=== PATIENT | male | born 1940 | race Caucasian/White ===

== ENCOUNTER 2020-10-01 10:08 | Outpatient (REF) | payer MEDICARE, BC, OTHER, SELFPAY | END 2020-10-01 10:09 | disposition home or self-care (01) | LOC: HO.HAP 10:08 | DX: Z46.1 Encounter for fitting and adjustment of hearing aid (principal); H90.3 Sensorineural hearing loss, bilateral | CPT/HCPCS: V5014; V5299 ==

== ENCOUNTER 2021-04-18 11:31 | Outpatient (REF) | payer MEDICARE, BC, SELFPAY ==
--- NOTE | 2021-04-21 10:17 | MHC.AU.AHA ---
Adult Audiological Evaluation Date of Visit: 04/18/21 Typists Supervisor Used: Not Applicable Reason for Appointment: Audiologic re-evaluation due to question of change in hearing ability. Mr. Linda reports he is not hearing as well from the right ear. It is noted today he has been wearing his very old right Widex hearing aid since he thought there was a problem with the current Phonak Bolero aid. 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 Left Ear - Mild dropping to profound sensorineural hearing loss with 92% speech discrimination at 80 dB HL. Medical History: Medical History: Cancer (Kidney cancer being treated with immunotherapy), Diabetes, Heart Problems, High Blood Pressure, Thyroid Disease Medication List: Aspirin, Atenolol, Betamethasone Dipropionate, Budesonide, Chephalexin, Furosemide (potentially ototoxic), Gabapentin, Insulin Aspart, Ketoconazole, Lantus Solostar, Levothyroxine, Loperamide, Nystatin-Triamcinolone, Rosuvastatin, Iron Hearing Instrument History- Right Ear: Court Orderly: Phonak Model: Bolero B 50-P BTE Serial Number: [id number] Battery Size: 13 Repair Warranty: 05/01/2021 Dispensed By: [facility] Date of Fittin02/25/2018 Hearing Instrument History- Left Ear: Court Orderly: Phonak Model: Bolero B 50-P Serial Number: [id number] Battery Size: 13 Warranty: 09/24/2021 Dispensed By: [facility] Date of Fittin04/08/2017 Otoscopy: Right Ear: Unremarkable Left Ear: Unremarkable Tympanometry: Tympanometry performed due to: History of mixed hearing loss Right Ear: Negative Middle Ear Pressure (Type C) Left Ear: Hypercompliant Middle Ear System (Type Ad) Hearing Evaluation: Transducer(s) Used: Insert Earphones Bone Conduction Method: Conventional Audiometry Stimuli Used: Pure Tones Right Ear: Description of Hearing: 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 Left Ear: Description of Hearing: Mild dropping to profound sensorineural hearing loss. Speech Recognition Threshold (SRT): Method Used: Monitored Live Voice Stimuli Used: Spondee Words Right Ear: 70 dB HL Left Ear: 40 dB HL Word Discrimination: Method: Recorded Lists Word Lists Used: NU-6 Right Ear: 68% at 95 dB HL Left Ear: 92% at 80 dB HL Comparison: Compared to the most recent evaluation: Hearing is stable. Word discrimination scores have decreased in the right ear. Compared to most recent evaluation: The reason the right ear speech understanding has decreased may be related to the fact Mr. Linda has been wearing his old Widex BTE aid. The sound quality of the old aid is not as sharp and clear as the current Phonak BTE. Following maintenance today, the right Phonak aid is amplifying well and he will use both Phonak aids. With proper stimulation now, the right ear speech discrimination will likely improve with time. Recommendations: Mr. Linda is eligible for a new left hearing aid through his insurance. Trial period with new left Veronika Evolve AI 1600 BTE with earmold is recommended as Phonak newest hearing aids do not have a similar model to his current aids. Medical clearance from a physician is required before fitting. Hearing Aid Fitting will be scheduled when all materials arrive. Hearing aid maintenance performed today. Audiological re-evaluation in one year. Will send a reminder card. Diagnosis: Primary Diagnosis: H90.3 Bilateral Sensorineural Hearing Loss Services Performed: Comprehensive Audiological Evaluation (CPT 18944) Tympanometry (CPT 12764) Signature: Provider: Nikita Torres, EILEEN-A
== END 2021-04-18 11:32 | disposition home or self-care (01) ==
LOC: HO.SH 11:31
PROVIDERS: PCP Internal Medicine; Visit Provider Internal Medicine
DX: H90.3 Sensorineural hearing loss, bilateral (principal)
CPT/HCPCS: 92557; 92567

== ENCOUNTER 2021-04-18 11:38 | Outpatient (REF) | payer SELFPAY ==
--- NOTE | 2021-04-21 07:41 | MHC.AU.MED ---
Medical Clearance for Hearing Instrumentation Date: 04/18/21 Patient Name: Nadir Linda Date of : 1940 Primary Care Provider: Referring Provider: Manjula Wilson MD We have seen your patient on 04/18/21 and have determined that they are a candidate for amplification (See accompanying report). Specifically, they would benefit from: Hearing aid use in the right ear There is a statute that addresses Medical Evaluation Requirements prior to fitting a patient with a hearing aid. According to [place] statute 265 CMR:6.03(1), (a) General. Except as provided in 265 CMR 6.03(1)(b), a meat stocker shall not sell a hearing aid unless the prospective user has presented to the meat stocker a written statement signed by a licensed physician that states that the patient's hearing loss has been medically evaluated and the patient may be considered a candidate for a hearing aid. The medical evaluation must have taken place within the preceding six months. Please note: Due to the [place] Statute referenced above, we cannot accept a signature other than that of a licensed physician. DIAMOND CUTTER and PA signatures cannot be accepted. I am in agreement with the above recommendation. There is no medical contraindication for hearing instrumentation. Physician Signature Date Physician Name (Printed)
--- NOTE | 2021-04-21 08:04 | MHC.AU.HAS ---
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 Left Ear - Mild dropping to profound sensorineural hearing loss. Current personal amplification information, if applicable: Left - 2017 Phonak Bolero B 50-P and Right 2018 Phonak Bolero B 50-P Summary: Mr. Linda is eligible for a new left hearing aid through insurance. Would like to stay with a similar battery style hearing aid. [employer] now longer makes the Bolero or Lauren 13 battery models. Will trial a Veronika hearing aid. He will be eligible for a right aid we can match 02/25/2022 Hearing Aid Prescription: Based on the individual?s shared listening needs, communication environments, dexterity, desire for connectivity, and personal preferences, the following prescription for amplification has been made: Left ear: Bi Consultant: [employer] Model: Evolve AI 1600 BTE Battery Size: 13 Color: 01 Champagne Tubin T double bend Type of Mold: Microsonic #3 Semi Skeleton Plan of Care: Patient wishes to purchase hearing aids as prescribed Action Taken/Action Needed: Earmold Impressions Taken Medical Clearance to be requested from PCP/ENT Hearing Instrument Fitting to be scheduled when materials arrive Primary Diagnosis: H90.3 Bilateral Sensorineural Hearing Loss Signature: Provider: Nikita Torres, [facility]
--- NOTE | 2021-04-21 08:11 | MHC.AU.MED ---
Medical Clearance for Hearing Instrumentation Date: 04/21/21 Patient Name: Nadir Linda Date of : 1940 Primary Care Provider: Referring Provider: Manjula Wilson MD We have seen your patient on 04/21/21 and have determined that they are a candidate for amplification (See accompanying report). Specifically, they would benefit from: Hearing aid use in the left ear There is a statute that addresses Medical Evaluation Requirements prior to fitting a patient with a hearing aid. According to [place] statute 265 CMR:6.03(1), (a) General. Except as provided in 265 CMR 6.03(1)(b), a hearing instrument specialist shall not sell a hearing aid unless the prospective user has presented to the hearing instrument specialist a written statement signed by a licensed physician that states that the patient's hearing loss has been medically evaluated and the patient may be considered a candidate for a hearing aid. The medical evaluation must have taken place within the preceding six months. Please note: Due to the [place] Statute referenced above, we cannot accept a signature other than that of a licensed physician. MANUFACTURING QUALITY TECHNICIAN and PA signatures cannot be accepted. I am in agreement with the above recommendation. There is no medical contraindication for hearing instrumentation. Physician Signature Date Physician Name (Printed)
== END 2021-04-18 11:39 | disposition home or self-care (01) ==
LOC: HO.HAP 11:38
PROVIDERS: Visit Provider Internal Medicine
DX: Z13.89 Encounter for screening for other disorder (principal)

== ENCOUNTER 2021-06-03 10:07 | Outpatient (REF) | payer MEDICARE, SELFPAY ==
--- NOTE | 2021-06-03 14:10 | MHC.AU.HFL ---
Hearing Instrument Fitting- Adult- Left Ear Date of Visit: 06/03/21 Hearing Instrument(s) Dispensed: Left Ear: Apprentice Painter Hand: [employer] Model: Evolv AI 1600 BTE 13 Serial Number: [id number] Repair Warranty: 08/05/2024 Loss and Damage Warranty: 08/05/2024 Battery Size: 13 Color: 01 Champagne Tubin T double bend Type of Mold: Microsonic #3 Semi Skeleton Type of Wax Guard: Summary of Fitting: Ran feedback test and performed Real Ear making adjustments to better meet target. Activated Frequency Lowering feature and volume control. All other features on default. Fit binaural new earmolds. The right earmold was ground down with patient reporting improved fit. Reprogrammed repaired Right Phonak Bolero B aid to last setting and updated to last audiogram. New left aid sounded louder to patient so increased the right Bolero aid as much as possible with patient reporting improved sound quality. Right Bolero B aid reaching maximum gain with changes made today. Patient wants to send out Left Phonak Bolero B aid which is under warranty until 09/2021. Completed all insurance paperwork with patient and sending to patient's insurance for him. Patient paid $800.00 today and will set up a payment plan for the remainder when he receives the bill. Recommendations:Hearing instrument care and maintenance were discussed and practiced. See handouts for care/use instructions and battery information. Patient does not feel follow-up is necessary at this time. Recommendations: When Left Phonak Bolero B repair is received, program to last settings. PATIENT NEEDS AID MAILED TO HIM AND BILL PATIENT ANY SHIPPING COSTS. Diagnosis Code(s): Primary Diagnosis: H90.3 Bilateral Sensorineural Hearing Loss Services Performed: Earmold (Quantity): 1 Right Ear RESENDEZ Product Codes: HAB[place] 2 L Signature: Student/Clinical Fellow: Provider: Nikita Torres, CCC-A
== END 2021-06-03 10:08 | disposition home or self-care (01) ==
LOC: HO.HAP 10:07
PROVIDERS: Visit Provider Internal Medicine
DX: Z46.1 Encounter for fitting and adjustment of hearing aid (principal); H90.3 Sensorineural hearing loss, bilateral
CPT/HCPCS: 92591; V5257; V5264

== ENCOUNTER 2021-06-23 09:47 | Outpatient (REF) | payer SELFPAY | END 2021-06-23 09:48 | disposition home or self-care (01) | LOC: HO.SH 09:47 | PROVIDERS: PCP Internal Medicine; Visit Provider Internal Medicine | DX: Z46.1 Encounter for fitting and adjustment of hearing aid (principal) | CPT/HCPCS: 99499 ==

== ENCOUNTER 2022-02-13 10:01 | Outpatient (REF) | payer SELFPAY ==
--- NOTE | 2022-02-13 10:58 | MHC.AU.HFU ---
Hearing Instrument Follow-Up- Binaural Date of Visit: 02/13/22 Right Ear: Senior Procurement Specialist: Phonak Model: Bolero B 50-P BTE Serial Number: [id number] Repair Warranty: 05/01/2021 Battery Size: 13 Color: Beige Tubing: #13 T double bend Type of Mold: Microsonic Semi Skeleton Dispensed By: [facility] Date of Fittin02/25/2018 Left Ear: Senior Procurement Specialist: Veronika Model: Evolv AI 1600 BTE 13 Serial Number: [id number] Repair Warranty: 08/05/2024 Loss and Damage Warranty: 08/05/2024 Battery Size: 13 Color: 01 Champagne Tubin T double bend Type of Mold: Microsonic #3 Semi Skeleton Dispensed By: [facility] Date of Fittin04/08/2017 Follow-Up Summary: Left Veronika aid with earmold and a right earmold mailed to office for cleaning and tubing change. Patient is now in a [facility] in [place] and cannot come to office and does not have any relatives/friends to bring aids to the office. Left tubing completely blocked with cerumen. Cleaned left aid, microphones and contacts, changed tubing for both earmolds. Left aid now amplifying clearly. Called patient to discuss the problem and recommended cerumen removal if possible. PATIENT WANTS ME TO KEEP THE RIGHT EARMOLD (IN EARMOLD DRAWER) HE WILL BE SEND THE RIGHT HEARING AID AND MAYBE HIS BACKUP AIDS. WILL SEND THE RIGHT EARMOLD WITH THE NEXT PACKAGE. Billed $25.00 for Shipping per Emeterio Dorantes Diagnosis Code(s):Primary Diagnosis: H90.3 Bilateral Sensorineural Hearing Loss Services Performed:RESENDEZ Non-Quantity Charges: [facility] [place] Charge (V5299) Signature:Provider: Lakhwinder Torres, EILEEN-A
== END 2022-02-13 10:02 | disposition home or self-care (01) ==
LOC: HO.HAP 10:01
PROVIDERS: Visit Provider Internal Medicine
DX: Z46.1 Encounter for fitting and adjustment of hearing aid (principal); H90.3 Sensorineural hearing loss, bilateral
CPT/HCPCS: V5299

== ENCOUNTER 2022-04-14 12:26 | Outpatient (REF) | payer SELFPAY | END 2022-04-14 12:27 | disposition home or self-care (01) | LOC: HO.HAP 12:26 | PROVIDERS: Visit Provider Internal Medicine | DX: Z13.89 Encounter for screening for other disorder (principal) | CPT/HCPCS: 92700; V5299 ==